=== PATIENT | male | born 1975 | race Two or more races ===

== ENCOUNTER 2020-01-02 08:35 | Emergency (ER) | payer BC ==
[~2020-01-02] VITALS: Ht 170.2 cm; Wt 75.3 kg
--- NOTE | 2020-01-02 08:50 | NUR ---
"Pain in the chest really sharp started earlier this am and was having cold sweats reminds me of gallbladder pain but it was already taken out" Patient a/ox4, breathing even and unlabored, no sob noted, needs attended, kept comfortable. Attached to quality assurance monitor body.
[2020-01-02 09:05] LABS: BASOPHILS # (AUTO) 0.2 /CMM (0.0-0.2); BASOPHILS % (AUTO) 2.9 % (0.0-2.0); EOSINOPHILS % (AUTO) 8.2 % (0.0-6.0); HEMATOCRIT 44 % (39-51); LYMPHOCYTES # (AUTO) 2.2 /CMM (0.8-4.8); LYMPHOCYTES % (AUTO) 39.3 % (20.0-44.0); MEAN CORPUSCULAR HGB CONC 34 g/dl (31.0-36.0); MEAN CORPUSCULAR VOLUME 89 fL (80-96); MONOCYTES # (AUTO) 0.3 /CMM (0.1-1.30); MONOCYTES % (AUTO) 5.6 % (2.0-12.0); NEUTROPHILS # (AUTO) 2.5 /CMM (1.8-8.9); PLATELET COUNT (AUTO) 171 /CMM (150-450); RED BLOOD CELL COUNT(AUTO) 4.94 MIL/uL (4.5-6.0); WHITE BLOOD COUNT (AUTO) 5.7 K/uL (4.3-11.0)
[2020-01-02 09:16] LABS: CALCIUM, SERUM 8.8 mg/dL (8.5-10.1); CARBON DIOXIDE 28 mmol/L (21-32); CHLORIDE 105 mmol/L (98-107); GLUCOSE 108 mg/dL (74-106); POTASSIUM 3.6 mmol/L (3.5-5.1); SODIUM SERUM 142 mmol/L (136-145); UREA NITROGEN, BLOOD 15 mg/dL (7-18)
[2020-01-02 09:31] LABS: ALANINE AMINOTRANSFERASE 44 U/L (12-78); ALBUMIN 3.9 g/dL (3.4-5.0); ALKALINE PHOSPHATASE 80 U/L (46-116); ASPARTATE AMINOTRANSFERASE 31 U/L (15-37); BILIRUBIN,DIRECT 0.2 mg/dL (0.0-0.2); BILIRUBIN,TOTAL 0.8 mg/dL (0.2-1.0); TOTAL PROTEIN, SERUM 7.2 g/dL (6.4-8.2)
[2020-01-02 09:54] LABS: B-TYPE NATRIURETIC PEPTIDE 9 PG/ML (0-125)
--- NOTE | 2020-01-02 10:58 | NUR ---
PATIENT A/OX4, AMBULATORY WITH STEADY GAIT, DENIES PAIN. NO DISTRESS NOTED. IV removed. Catheter intact and site benign. Pressure and 4x4 applied to site. No bleeding noted.Patient discharged to home in stable condition. Written and verbal after care instructions given. Patient verbalizes understanding of instruction.
[2020-01-02 10:59] VITALS: BP 124/63
== END 2020-01-02 10:59 | disposition home or self-care (01) ==
LOC: ER 08:39
DX: R07.89 Other chest pain (principal); Z90.49 Acquired absence of other specified parts of digestive tract
CPT/HCPCS: 36415; 71045-TC; 80048-TC; 80076-TC; 83880; 84484-TC; 85025-TC

== ENCOUNTER 2021-11-24 10:43 | Emergency (ER) | payer BC ==
[~2021-11-24] VITALS: Ht 170.2 cm; Wt 85.3 kg
--- NOTE | 2021-11-24 10:59 | NUR ---
TO ER BED 1. BIBS C/O HEADACHE, DIZZINESS S/P HITTING THE BACK OF HIS HEAD ON A HARD SUFACE LAST NIGHT. DENIES KO, NAUSEA, AND VOMITING. PT VITALS ARE WITHIN NORMAL LIMITS.
--- NOTE | 2021-11-24 11:04 | NUR ---
dr torres at bedside
[2021-11-24] MEDS ORDERED: IBUP-1955 PO (11:19)
[2021-11-24] MEDS ORDERED: ACETAMINOPHEN 325 MG TABLET ONE (11:23)
[2021-11-24] MEDS ORDERED: ACETAMINOPHEN 325 MG TABLET PO ONE (11:30)
[2021-11-24] MEDS ORDERED: IBUPROFEN 600 MG TABLET PO ONE (11:30)
[2021-11-24 11:43] VITALS: BP 130/69
--- NOTE | 2021-11-24 11:43 | NUR ---
Patient discharged to home in stable condition. Written and verbal after care instructions given. Patient verbalizes understanding of instruction.
== END 2021-11-24 11:43 | disposition home or self-care (01) ==
LOC: ER 10:47
DX: S06.0X0A Concussion without loss of consciousness, initial encounter (principal); Z98.890 Other specified postprocedural states; W18.09XA Striking against other object with subsequent fall, initial encounter; Y93.89 Activity, other specified; Y92.89 Other specified places as the place of occurrence of the external cause; Y99.8 Other external cause status